=== PATIENT | female | born 1990 | race Caucasian/White ===

== ENCOUNTER 2018-04-05 09:56 | Emergency (ER) | payer OTHER ==
[2018-04-05] MEDS ORDERED: MECLIZINE HCL 25 MG TAB PO ONE (10:27)
[2018-04-05] MEDS ORDERED: ONDANSETRON 4 MG/2 ML VIAL IVP ONE (10:27)
--- NOTE | 2018-04-05 10:27 | EDPHY ---
H & P Stated Complaint: dizzy - Personal History LMP (Females 10-55): Now Current Tetanus/Diphtheria Vaccine: Yes Current Tetanus Diphtheria and Acellular Pertussis (TDAP): Yes - Medical/Surgical History Hx Asthma: Yes Hx Chronic Respiratory Disease: No Hx Diabetes: No Hx Cardiac Disease: No Hx Renal Disease: No Hx Cirrhosis: No Hx Alcoholism: No Hx HIV/AIDS: No Hx Splenectomy or Spleen Trauma: No Other PMH: tonsilectomy, R shoulder surgery, intracranial HTN, asthma, FATIMAH - Social History Smoking Status: Current every day smoker Time Seen by Provider: 04/05/18 10:12 HPI/ROS: CHIEF COMPLAINT: Dizzy since this morning HISTORY OF PRESENT ILLNESS: 27-year-old female awoke with sensation of room spinning this morning as well as nausea. She is also complaining of headache which feels like her usual headache, noting headaches for the past 2 years after having similar symptoms while in [place] and diagnosed with elevated intracranial pressure. Patient notes that she has a history of manipulating her neck, stretching her neck and cracking her neck and did so this morning as well. Denies: Recent illness, malaise, fever, chills, nuchal rigidity, gait instability, slurred speech, photophobia, hearing loss, barotrauma, otorrhea, foreign body insertion. REVIEW OF SYSTEMS: A ten point review of systems was performed and is negative with the exception of the items mentioned in the HPI PAST MEDICAL & SURGICAL HISTORY: Prior history of similar vertiginous symptoms 2 years ago while in [place], states was diagnosed with elevated intracranial pressure as experience chronic headaches ever since SOCIAL HISTORY: Nonsmoker no IV drug use PHYSICAL EXAM (Prior to examination, patient consented to physical exam, hands were washed and my usual and customary physical exam procedures followed) 1) GENERAL: Well-developed, well-nourished, alert and oriented. Appears uncomfortable, emesis basin in hand. 2) HEAD: Normocephalic, atraumatic 3) HEENT: [Pupils equal, round, reactive to light bilaterally. Sclera anicteric. Funduscopic examination is grossly unremarkable bilaterally. Optic nerve edges are crisp bilaterally. Nasopharynx, oropharynx, clear, no lesions. Ears bilaterally with normal tympanic membranes. No signs of otitis media or otitis externa. No effusion. 4) NECK: Full range of motion, no meningeal signs. 5) LUNGS: Clear auscultation bilaterally, no wheezes, no rhonchi, no retractions. 6) HEART: Regular rate and rhythm, no murmur, no heave, no gallop. 7) ABDOMEN: No guarding, no rebound, no focal tenderness, negative McBurney's, negative Guillermo's, negative Rovsing's, negative peritoneal sign, 8) MUSCULOSKELETAL: Moving all extremities, no focal areas of tenderness, no obvious trauma. No peripheral edema or discoloration. 9) BACK: No CVA tenderness, no midline vertebral tenderness, no fluctuance, no step-off, no obvious trauma, no visual or palpable abnormality. 10) SKIN: No rash, no petechiae. 11) Psychiatric: Patient is oriented X 3, there is no agitation. 12) NEURO: Awake, alert, and oriented to person, place and time. Answers questions appropriately. There were no obvious focal neurologic abnormalities. No cerebellar dysfunction. Cranial nerves 2 through to 12 intact. Normal steady gait. Upper and lower extremities bilaterally with strength 5 / 5, reflexes 2+. DIFFERENTIAL DIAGNOSIS: In no particular order, including but not limited to subarachnoid hemorrhage, migraine headache, cervico-cranial vessel dissection, acoustic neuroma, meniere's, benign positional vertigo, tension headache and infectious causes such as meningitis, pharyngitis and sinusitis. (Roberta Angeles Silva) Constitutional: Initial Vital Signs Temperature (C) 36.7 C 04/05/18 10:01 Heart Rate 60 04/05/18 10:01 Respiratory Rate 16 04/05/18 10:01 Blood Pressure 122/83 H 04/05/18 10:01 O2 Sat (%) 96 04/05/18 10:01 O2 Delivery Mode Room Air Allergies/Adverse Reactions: ampicillin Allergy (Verified 04/05/18 09:59) Penicillins Allergy (Verified 04/05/18 09:59) Home Medications: Medication Instructions Recorded Claritin 04/05/18 Meclizine HCl [Meclizine HCl 25 mg 25 mg PO BID PRN #7 tab 04/05/18 (RX,OTC)] Testosterone 04/05/18 lamoTRIgine 04/05/18 Medical Decision Making - Diagnostics Imaging Results: Imaging Impressions Head CT 04/05/18 11:21 Impression: 1. Normal CT brain without contrast. 2. No sinusitis. 3. Consider MRI of the brain, if there is continued clinical concern. Findings and recommendations discussed with Emergency Department physician, Roberta Angeles PA-C at 1210 hour, 04/05/2018. Final report concurs with initial preliminary interpretation. Neck CTA 04/05/18 11:21 Impression: 1. Normal CTA of the carotids and vertebral arteries. 2. No carotid or vertebral dissection, flow-limiting stenosis or occlusion. Measurement of carotid stenosis is based on the residual internal carotid diameter with [place] Symptomatic Carotid Endarterectomy Trial (NASCET) based stenosis levels. Findings and recommendations discussed with Emergency Department physician, Roberta Angeles at 221 hour, 04/05/2018. Final report concurs with initial preliminary interpretation. ED Course/Re-evaluation: I did not see this patient while she was in the emergency department. However her care was discussed with the PA while the patient was in the department. I agree with treatment plan and management (Kraig Murillo) 10:28 a.m.: Patient has a nonfocal exam, she appears uncomfortable. She specifically declines any IV fluids noting that if she has more than 3 glasses water in 24 hr this will elicit significant headaches. Care of patient under supervision of secondary supervising physician Dr Kraig Murillo with whom I discussed case. Plan will be CT imaging of the head as well as imaging of the neck as she notes a history of chronic neck cracking and self manipulation which occurred this morning as well. 12:55 p.m.: Re-evaluation. Patient feeling improvement symptoms. Discussed her negative imaging results. At this time I have observed the patient ambulating without assistance with stable steady gait. Recommended follow up with neurology given her chronic headache symptoms since this incident in [place] 2 years ago. At this time I do not think that MRI is indicated absence of neurologic deficits. Doubt cerebellar etiology. Doubt malignancy. Doubt CVA. I think the patient can be discharged home with usual and customary discharge precautions instructions. (Roberta Angeles) - Data Points Laboratory Results: Laboratory Results 04/05/18 10:25 04/05/18 10:25 04/05/18 04/05/18 04/05/18 10:25 10:25 10:25 WBC 5.14 10^3/uL 10^3/uL (3.80-9.50) RBC 4.96 10^6/uL 10^6/uL (4.18-5.33) Hgb 14.8 g/dL g/dL (12.6-16.3) Hct 43.0 % % (38.0-47.0) MCV 86.7 fL fL (81.5-99.8) MCH 29.8 pg pg (27.9-34.1) MCHC 34.4 g/dL g/dL (32.4-36.7) RDW 12.2 % % (11.5-15.2) Plt Count 218 10^3/uL 10^3/uL (150-400) MPV 9.9 fL fL (8.7-11.7) Neut % (Auto) 47.4 % % (39.3-74.2) Lymph % (Auto) 40.5 % % (15.0-45.0) [place] % (Auto) 8.4 % % (4.5-13.0) Eos % (Auto) 2.3 % % (0.6-7.6) Baso % (Auto) 1.0 % % (0.3-1.7) Nucleat RBC Rel Count 0.0 % % (0.0-0.2) Absolute Neuts (auto) 2.44 10^3/uL 10^3/uL (1.70-6.50) Absolute Lymphs (auto) 2.08 10^3/uL 10^3/uL (1.00-3.00) Absolute Monos (auto) 0.43 10^3/uL 10^3/uL (0.30-0.80) Absolute Eos (auto) 0.12 10^3/uL 10^3/uL (0.03-0.40) Absolute Basos (auto) 0.05 10^3/uL 10^3/uL (0.02-0.10) Absolute Nucleated RBC 0.00 10^3/uL 10^3/uL (0-0.01) Immature Gran % 0.4 % % (0.0-1.1) Immature Gran # 0.02 10^3/uL 10^3/uL (0.00-0.10) Sodium 140 mEq/L mEq/L (135-145) Potassium 4.2 mEq/L mEq/L (3.3-5.0) Chloride 109 mEq/L mEq/L (97-110) Carbon Dioxide 19 mEq/l L mEq/l (22-31) Anion Gap 12 mEq/L mEq/L (8-16) BUN 15 mg/dL mg/dL (7-23) Creatinine 0.6 mg/dL mg/dL (0.6-1.0) Estimated GFR > 60 Glucose 98 mg/dL mg/dL (70-100) Calcium 8.8 mg/dL mg/dL (8.5-10.4) Beta HCG, Qual NEGATIVE Medications Given: Discontinued Medications Meclizine HCl (Meclizine Hcl) 25 mg PO EDNOW ONE Stop: 04/05/18 10:28 Last Admin: 04/05/18 10:33 Dose: 25 mg Ondansetron HCl (Zofran) 4 mg IVP EDNOW ONE Stop: 04/05/18 10:28 Last Admin: 04/05/18 10:33 Dose: 4 mg Departure - Departure Disposition: [facility] Clinical Impression: Dizziness Condition: Good Instructions: Vertigo (ED) Additional Instructions: RETURN TO THE ED IMMEDIATELY IF YOUR HEADACHE WORSENS, IF YOU DEVELOP A FEVER, NECK PAIN OR NECK STIFFNESS, OR IF YOU BECOME CONFUSED OR ABNORMALLY DROWSY. Referrals: Madi Farfan MD [Medical Doctor] - 2-3 days, call for appt. (Dr. Madi Farfan is a neurologist) Prescriptions: Meclizine HCl [Meclizine HCl 25 mg (RX,OTC)] 25 mg PO BID PRN #7 tab PRN Reason: Dizziness
[2018-04-05 10:32] LABS: PLATELET COUNT 218 10^3/uL (150-400)
--- NOTE | 2018-04-05 11:15 | CPEKG ---
Heart Rate: 51 RR Interval: 1176 P-R Interval: 152 QRSD Interval: 90 QT Interval: 464 QTC Interval: 428 P [place]: 49 QRS [place]: 61 T Wave [place]: 33 EKG Severity - NORMAL ECG - EKG Impression: SINUS RHYTHM Electronically Signed By: Jerald Hoffman 05-Apr-2018 20:21:07
[2018-04-05] MEDS ORDERED: IOPAMIDOL (ISOVUE 370) 100 ML BTL IV ONE (11:31)
[2018-04-05 13:10] VITALS: BP 117/76
== END 2018-04-05 13:10 ==
DX: R42 Dizziness and giddiness (principal); J45.909 Unspecified asthma, uncomplicated; F17.200 Nicotine dependence, unspecified, uncomplicated
CPT/HCPCS: 96374; J2405; Q9967

== ENCOUNTER → 2018-07-27 | Outpatient (CLI) | payer OTHER | LOC: BMCIMAGING 18:06 | PROVIDERS: ATTEND Family Medicine | DX: R05 Cough (principal) ==

== ENCOUNTER 2018-11-07 16:07 | Emergency (ER) | payer OTHER ==
--- NOTE | 2018-11-07 16:52 | EDPHY ---
H & P Stated Complaint: Fevers, body aches, low abdo pain. Sent by [facility]. Positive for UTI. - Personal History Current Tetanus Diphtheria and Acellular Pertussis (TDAP): Yes - Medical/Surgical History Hx Asthma: Yes Hx Chronic Respiratory Disease: No Hx Diabetes: No Hx Cardiac Disease: No Hx Renal Disease: No Hx Cirrhosis: No Hx Alcoholism: No Hx HIV/AIDS: No Hx Splenectomy or Spleen Trauma: No Other PMH: tonsilectomy, R shoulder surgery, intracranial HTN, asthma, FATIMAH. - Social History Smoking Status: Current every day smoker Time Seen by Provider: 11/07/18 16:42 HPI/ROS: CHIEF COMPLAINT: Lower abdominal pain HISTORY OF PRESENT ILLNESS: 28-year-old trans gender male, biologic female, complaining of 3 days of lower abdominal pain, seen at urgent care diagnosed with bacterial vaginosis, and UTI, prescribed Macrobid, was told to go to the ER at that time but declined. Today is Wednesday. The patient notes worsening suprapubic as well as right lower quadrant abdominal pain. No nausea or vomiting. Last oral intake 3:00 p.m. Which he tolerated well Also notes that since yesterday evening patient has been complaining of sore throat, nonproductive cough, fever, myalgias. No influenza vaccination this season. 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 Appears to be in no acute distress. 2) HEAD: Normocephalic, atraumatic 3) HEENT: Pupils equal, round, reactive to light bilaterally. Sclera anicteric. No tonsillar enlargement or exudate. No trismus no drooling. Bilateral ear examination is unremarkable with no evidence of otitis media or otitis externa. 4) NECK: Full range of motion, no meningeal signs. No adenopathy. 5) LUNGS: Clear auscultation bilaterally, no wheezes, no rhonchi, no retractions. 6) HEART: Regular rate and rhythm, no murmur, no heave, no gallop. 7) ABDOMEN: No guarding. Positive tender to palpation suprapubic region and right lower quadrant , positive peritoneal sign, 8) MUSCULOSKELETAL: Moving all extremities, no focal areas of tenderness, no obvious trauma. No peripheral edema or discoloration. 9) BACK: No CVA tenderness, no midline vertebral tenderness, no fluctuance, no step-off, no obvious trauma, no visual or palpable abnormality. 10) SKIN: No rash, no petechiae. 11) Psychiatric: Patient is oriented X 3, there is no agitation. DIFFERENTIAL DIAGNOSIS: My differential diagnosis includes, but is not limited to, acute appendicitis, acute cholecystitis, bowel obstruction, acute pancreatitis, ovarian torsion, ectopic , gastritis and urinary tract infection. The patient understands that this diagnosis is provisional and can never be 100% accurate. This is a partial list of diagnoses considered. These considerations are based on history, physical exam, past history and reassessment. (Roberta Angeles) Constitutional: Initial Vital Signs Temperature (C) 36.6 C 11/07/18 16:10 Heart Rate 69 11/07/18 16:10 Respiratory Rate 18 11/07/18 16:10 Blood Pressure 123/70 H 11/07/18 16:10 O2 Sat (%) 96 11/07/18 16:10 O2 Delivery Mode Room Air Allergies/Adverse Reactions: ampicillin Allergy (Verified 04/05/18 09:59) Penicillins Allergy (Verified 04/05/18 09:59) Home Medications: Medication Instructions Recorded Claritin 04/05/18 Testosterone 04/05/18 Albuterol 11/07/18 Cephalexin [Keflex] 500 mg PO TID 7 Days cap 11/07/18 Macrobid 11/07/18 Phenazopyridine HCl [Pyridium] 200 mg PO PC #10 tab 11/07/18 Medical Decision Making - Diagnostics Imaging Results: Images reviewed myself (Roberta Angeles) ED Course/Re-evaluation: 4:51 p.m.: Patient has suprapubic and right lower quadrant abdominal pain. Recommended laboratory studies as well as pelvic ultrasonography and possible CT imaging 6:20 p.m.: Re-evaluation, discussed with patient the imaging results. He does have evidence of cystitis. I re-examined the patient, exquisitely tender to palpation suprapubic and left lower quadrant region. Normal white count which is encouraging however has been informed that acute surgical abdominal pathology is not ruled out. We discussed options including [address] imaging now. He prefer CT imaging now. Indications risks benefits discussed with patient he consents. I believe him to have decision-making capacity. The patient was re-evaluated post CT imaging, discussed imaging results. He is awake alert, appears comfortable, smiling. Feels comfortable being discharged. Transition patient to Keflex and Pyridium for cystitis. Doubt acute surgical abdominal pathology. My usual and customary abdominal precautions instructions provided. Care of patient under supervision of secondary supervising physician Dr Kraig Murillo. ([facility]) I did not see this patient while she was in the emergency department. However her care was discussed with the PA while the patient was in the department. I agree with treatment plan and management (Kraig Murillo) - Data Points Laboratory Results: Laboratory Results 11/07/18 17:00 11/07/18 17:00 Microbiology Results: MICROBIOLOGY 11/07/18 17:00 Urine,Clean Catch Urine Culture - Final [place] Types Departure - Departure Disposition: Home, Routine, Self-Care Clinical Impression: Cystitis Condition: Good Instructions: Urinary Tract Infection in Women (ED) Additional Instructions: Seek immediate medical attention if you develop new or worsening symptoms, if you develop fevers, chills, inability to tolerate oral intake or any other symptoms that concerns you. Referrals: [facility],. [Clinic] - As per Instructions Prescriptions: Cephalexin [Keflex] 500 mg PO TID 7 Days cap Phenazopyridine HCl [Pyridium] 200 mg PO PC #10 tab
[2018-11-07 17:19] LABS: PLATELET COUNT 248 10^3/uL (150-400)
[2018-11-07] MEDS ORDERED: IOPAMIDOL (ISOVUE-300) 100 ML BTL ONE (18:31)
[2018-11-07 19:43] VITALS: BP 98/65
== END 2018-11-07 19:43 | disposition home or self-care (01) ==
DX: N30.90 Cystitis, unspecified without hematuria (principal); F17.200 Nicotine dependence, unspecified, uncomplicated; Z88.0 Allergy status to penicillin
CPT/HCPCS: Q9967

== ENCOUNTER 2019-05-21 05:57 | Emergency (ER) | payer OTHER | END 2019-05-21 11:16 | disposition home or self-care (01) ==